=== PATIENT | female | born 1935 | race Caucasian/White ===

== ENCOUNTER 2017-05-23 13:35 | Inpatient (IN) | payer MEDICARE ==
[~2017-05-23] VITALS: Ht 160 cm; Wt 48.1 kg
--- NOTE | 2017-05-23 13:40 | NUR ---
BIB [facility],TRIPPED/FELL INFRONT OF HER HOUSE, C/O LEFT KNEE PAIN WITH GROSS,DEFORMITY
[2017-05-23] MEDS ORDERED: WARF1TAB47 PO (13:54)
[2017-05-23] MEDS ORDERED: DILT180C66 PO (13:54)
[2017-05-23] MEDS ORDERED: METO-302 PO (13:54)
[2017-05-23 13:55] LABS: BASOPHILS # (AUTO) 0.1 /CMM (0.0-0.2); BASOPHILS % (AUTO) 0.4 % (0.0-2.0); EOSINOPHILS # (AUTO) 0.2 /CMM (0.0-0.7); EOSINOPHILS % (AUTO) 1.2 % (0.0-6.0); HEMATOCRIT 42 % (33-45); HEMOGLOBIN 14.1 g/dL (11.5-14.8); LYMPHOCYTES % (AUTO) 13.9 % (20.0-44.0); MEAN CORPUSCULAR HEMOGLOBIN 29 PG (26.0-33.0); MEAN CORPUSCULAR HGB CONC 34 g/dl (31.0-36.0); MEAN CORPUSCULAR VOLUME 86 fL (82-100); MONOCYTES # (AUTO) 0.8 /CMM (0.1-1.30); MONOCYTES % (AUTO) 5.4 % (2.0-12.0); NEUTROPHILS # (AUTO) 11.4 /CMM (1.8-8.9); NEUTROPHILS % (AUTO) 79.1 % (43.0-81.0); PLATELET COUNT (AUTO) 182 /CMM (150-450); RDW COEFFICIENT OF VARIATION 13.9 (11.5-15.0); RED BLOOD CELL COUNT(AUTO) 4.85 MIL/uL (4.0-5.2); WHITE BLOOD COUNT (AUTO) 14.5 K/uL (4.3-11.0)
[2017-05-23 14:08] LABS: CALCIUM, SERUM 9.3 mg/dL (8.5-10.1); CARBON DIOXIDE 28 mmol/L (21-32); CHLORIDE 100 mmol/L (98-107); CREATININE 0.8 mg/dL (0.6-1.3); GLUCOSE 106 mg/dL (74-106); POTASSIUM 4.8 mmol/L (3.5-5.1); SODIUM SERUM 137 mmol/L (136-145); UREA NITROGEN, BLOOD 20 mg/dL (7-18)
[2017-05-23 14:13] LABS: INR 2.05 (0.87-1.13); PROTHROMBIN TIME 22.1 SECS (9.5-12.7)
--- NOTE | 2017-05-23 14:13 | NUR ---
LICENSING AND REGISTRATION DIRECTOR AT BEDSIDE
--- NOTE | 2017-05-23 14:34 | NUR ---
DR RODRIGUEZ AT BEDSIDE
[2017-05-23] MEDS ORDERED: DOFE250C4 PO (16:45)
[2017-05-23] MEDS ORDERED: SERT50TA PO (16:45)
[2017-05-23] MEDS ORDERED: CHOL100062 PO (16:45)
[2017-05-23] MEDS ORDERED: METO25TA6 PO (16:45)
[2017-05-23] MEDS ORDERED: DIGO125T PO (16:45)
[2017-05-23] MEDS ORDERED: IBAN150T PO (16:45)
[2017-05-23] MEDS ORDERED: CALC500T3 PO ×2 (16:48→16:54)
[2017-05-23] MEDS ORDERED: [UNRECOGNIZED DRUG - CODE] PO (16:50)
--- NOTE | 2017-05-23 17:11 | NUR ---
GAVE REPORT TO KACI FRANKS MEDSURAnahy REYES LEFT HIP FRACTURE
--- NOTE | 2017-05-23 17:50 | NUR ---
RN NOTES RECEIVED PT IN BED, ALERT AND ORIENTED X4 COMPLAINING OF DIZZINESS WITH FRIEND AT BEDSIDE. IV ON LAC INTACT AND PATENT, SL. LEFT LEG ELEVATED ON PILLOW. PT ON RA, RESPIRATIONS ARE EVEN AND UNLABORED. WILL CONTINUE TO MONITOR.
[2017-05-23 18:00] VITALS: BP 140/87
--- NOTE | 2017-05-23 19:01 | NUR ---
RN NOTES PT IS SITTING UP IN BED, EATING DINNER. DIZZINESS HAS SUBSIDED. PT ON RA, RESPIRATIONS ARE EVEN AND UNLABORED. IV ON LAC, INTACT AND PATENT. ICE PACK ON NECK, PT IS SWEATING. PT STATES SHE IS SWEATING FROM A BAD REACTION FROM THE NARCOTIC GIVEN IN THE ER. SAFETY MEASURES ARE IN PLACE, CALL LIGHT IS IN REACH. WILL ENDORSE TO DAIRY CATTLE FARMER RN FOR CONTINUITY OF CARE.
--- NOTE | 2017-05-23 19:25 | NUR ---
MS/RN OPENING NOTES PT AWAKE, HOB ELEVATED. FAMILY FRIENDS AT BEDSIDE. A/OX4, ON ROOM AIR, BREATHING EVEN AND UNLABORED. DENIES SOB OR PAIN AT THIS TIME. ALSO DENIES NAUSEA/VOMITING AT THIS TIME. IV TO LAC PATENT AND INTACT. FAMILY FRIENDS TO BRING HOME MEDICATIONS TONIGHT. BED IN LOW/LOCKED POSITION WITH CALL LIGHT IN REACH AND SIDE RAILS UPX2. WILL CONTINUE TO MONITOR
[2017-05-23 20:00] VITALS: BP 109/57
--- NOTE | 2017-05-23 21:25 | NUR ---
MS/RN NOTES PT'S FAMILY FRIENDS BROUGHT HOME MEDICATIONS. VERIFIED WITH TIM. LUCERO TO GIVE NIGHT DOSE PER GURDEEP MARION. Addendum: 05/24/17 at 0026 by ALEE BANSAL RN MEDICATION= DOFETILIDE
[2017-05-24] VITALS (39 sets, daily range): BP systolic 70–140; BP diastolic 18–74
[2017-05-24 06:29] LABS: BASOPHILS % (AUTO) 0.3 % (0.0-2.0); HEMATOCRIT 35 % (33-45); HEMOGLOBIN 11.8 g/dL (11.5-14.8); LYMPHOCYTES # (AUTO) 2.1 /CMM (0.8-4.8); LYMPHOCYTES % (AUTO) 16.3 % (20.0-44.0); MEAN CORPUSCULAR HEMOGLOBIN 29 PG (26.0-33.0); MEAN CORPUSCULAR HGB CONC 33 g/dl (31.0-36.0); MEAN CORPUSCULAR VOLUME 88 fL (82-100); MONOCYTES # (AUTO) 1.4 /CMM (0.1-1.30); MONOCYTES % (AUTO) 10.6 % (2.0-12.0); NEUTROPHILS # (AUTO) 9.4 /CMM (1.8-8.9); NEUTROPHILS % (AUTO) 72.8 % (43.0-81.0); PLATELET COUNT (AUTO) 161 /CMM (150-450); RDW COEFFICIENT OF VARIATION 15.4 (11.5-15.0); RED BLOOD CELL COUNT(AUTO) 4.02 MIL/uL (4.0-5.2); WHITE BLOOD COUNT (AUTO) 12.9 K/uL (4.3-11.0)
[2017-05-24 06:37] LABS: INR 2.08 (0.87-1.13); PROTHROMBIN TIME 21.8 SECS (9.5-12.7)
[2017-05-24 06:47] LABS: CALCIUM, SERUM 8.9 mg/dL (8.5-10.1); CARBON DIOXIDE 26 mmol/L (21-32); CHLORIDE 104 mmol/L (98-107); CREATININE 1.7 mg/dL (0.6-1.3); GLUCOSE 146 mg/dL (74-106); PHOSPHORUS 6.8 mg/dL (2.5-4.9); POTASSIUM 5.8 mmol/L (3.5-5.1); SODIUM SERUM 142 mmol/L (136-145); UREA NITROGEN, BLOOD 31 mg/dL (7-18)
--- NOTE | 2017-05-24 07:30 | NUR ---
MS/RN Patient received Patient received from machinist 2nd shift. No needs at this time, call light within reach, will continue to monitor. Remains NPO, for possible surgery later today.
--- NOTE | 2017-05-24 07:40 | NUR ---
MS/RN CLOSING NOTES PT AWAKE, A/OX4. ON RA, BREATHING EVEN AND UNLABORED. DENIES SOB BUT NOTES PAIN TO LEFT HIP 04/05 BUT REFUSING DILAUDID IT MADE PT FEEL NAUSEOUS AND DIZZY. MORPHINE AVAILABLE AN ALTERNATIVE. IV TO LAC PATENT AND INTACT. DENIES N/V AT THIS TIME. HOME MEDS PROVIDED AND SENT DOWN TO PHARMACY. SON SURINDER RIVERA [phone] CALLED FOR UPDATES. WOULD LIKE TO KNOW IF/WHEN SHE WILL BE HAVING SURGERY AND HOW LONG HER STAY WILL BE. BED IN LOW/LOCKED POSITION, CALL LIGHT IN REACH. SIDE RAILS UPX2. ENDORSED TO AM SHIFT SUSANNA.
--- NOTE | 2017-05-24 08:10 | NUR ---
MS/RN Hypotension Patient noted to be hypotensive at 78/48, reading reckecked with manual cuff and found to be acerate. Dr Solitario made aware, order given for 500ml normal saline bolus and then continuos fluids at 100 ml/hr. Will reckeck blood pressure.
--- NOTE | 2017-05-24 08:30 | NUR ---
MS/RN NS Bolus Normal saline bolus infusing, no signs of infiltration around heplock insertion site. Blood pressure rechecked and remains low at 84/46.
--- NOTE | 2017-05-24 09:00 | NUR ---
MS/RN S/B Dr Gay Seen by Dr Gay - orders given to administer mephyton 10mg, 650mg tylenol with small sips of water. Ice pack to be applied to left hip, may also have ice chips but otherwise to remain NPO as possible surgery later today.
--- NOTE | 2017-05-24 09:10 | NUR ---
MS/RN S/B Dr Gonzalez Seen by Dr Gonzalez - EKG and 2Decho ordered. Made aware that patient remains tachy and hypotensive.
--- NOTE | 2017-05-24 09:15 | NUR ---
MS/RN S/B Dr Solitario Seen by Dr Solitario - no new orders.
--- NOTE | 2017-05-24 09:30 | NUR ---
MS/RN Labs Morning labs reviewed: -WBC 12.9 -K+ 5.8 -BUN 31 -Creat 1.7 -PT 21.8 -INR 2.08 -Digoxin 0.00 MD made aware.
--- NOTE | 2017-05-24 09:30 | NUR ---
MS/RN Consent Surgical consent obtain by Dr Gay for hip surgery, placed in chart.
--- NOTE | 2017-05-24 10:00 | NUR ---
MS/mounter order Order given by both Dr Gay and Dr Gonzalez to transfer patient to ICU for blood pressure support and uncontrolled a-fib. Nursing supervisor laundry called for bed assignment.
--- NOTE | 2017-05-24 10:20 | NUR ---
MS/RN Blood pressure Latest blood pressure 82/51, heartrate 173. Dr Lisa hsieh, awaiting room assignment in ICU. Call received from ICU, patient will be going to room 252.
--- NOTE | 2017-05-24 10:33 | NUR ---
MS/care connector to ICU Patient transferred to ICU as per order, chart and all personal belongings with patient. Report given to Colleen. Next of kin (son) made aware of transfer.
--- NOTE | 2017-05-24 10:35 | NUR ---
ICU/RN: Pt received via ACLS protocol via hospital bed accompanied by Dr Palacios. Pt A&Ox4, denies palpitations, chest discomfort, breathing even and unlabored on RA. Placed on select banker; with periods of SVT lasting 10 secs. discussed need for cardioversion with pt, agreeable with POC. Dr Morrison consulted for anesthesiology. Awaiting arrival.
--- NOTE | 2017-05-24 10:45 | NUR ---
ICU/RN: Dr Palacios and Dr Morrison and at bedside for cardioversion. Pt converted back to NSR in 70's with slight improvement in SBP in low 100's. New orders noted and carried out. laborer laboratory updated.
[2017-05-24 11:26] LABS: CALCIUM, SERUM 7.8 mg/dL (8.5-10.1); CARBON DIOXIDE 28 mmol/L (21-32); CHLORIDE 107 mmol/L (98-107); CREATININE 1.7 mg/dL (0.6-1.3); GLUCOSE 133 mg/dL (74-106); POTASSIUM 5.5 mmol/L (3.5-5.1); SODIUM SERUM 140 mmol/L (136-145); UREA NITROGEN, BLOOD 36 mg/dL (7-18)
[2017-05-24 11:30] LABS: MAGNESIUM 1.9 mg/dL (1.8-2.4); PHOSPHORUS 4.8 mg/dL (2.5-4.9)
--- NOTE | 2017-05-24 12:00 | NUR ---
ICU/RN: Dr Solitario updated on pt transfer to ICU, cardiac and nephrology status. No new orders.
--- NOTE | 2017-05-24 12:15 | NUR ---
ICU/RN: GOLDEN Long at bedside for PICC insertion. Remains hemodynamically stable. Will administer Amiodarone bolus as ordered as BP permits per Dr Palacios post-PICC insertion.
--- NOTE | 2017-05-24 13:57 | NUR ---
ICU/RN: Dr Morrison at bedside for nephrology consult. Updated on current condition, discussed abn labs, elevated K. Orders noted and carried out.
--- NOTE | 2017-05-24 15:54 | NUR ---
ICU/RN: Called [facility], Rx regarding 1400 Kayexelate dose. Per Rx, "the tech is bringing it up right now." Awaiting delivery.
[2017-05-24 16:38] LABS: INR 2.28 (0.87-1.13); PROTHROMBIN TIME 23.9 SECS (9.5-12.7)
--- NOTE | 2017-05-24 16:44 | NUR ---
ICU/RN: Called Rx to f/u Kayexelate delivery, Judah from Rx to personally deliver Kayexelate dose. Will administer as ordered upon arrival.
--- NOTE | 2017-05-24 18:05 | NUR ---
ICU/RN: Pt reports feeling nauseous after Kayexelate dose; administered Zofran for relief. Will reassess accordingly.
--- NOTE | 2017-05-24 18:53 | NUR ---
Patient is alert and pleasant. She lives alone in [place]. Prior to admission, she was driving, ambulatory and very independent. Has no DME or homehealth reported. Has 2 sons Parag & Ruddy who are involved, both contact number not avail. Plan for possible hip surgery. Patient is a good candidate for ARU. Will discuss with patient dc planning options. Addendum: 05/24/17 at 1854 by OLIVIA BLANTON RN Amended: Links added.
--- NOTE | 2017-05-24 19:14 | NUR ---
ICU/RN: Pt tolerated dinner, at 50%. No distress noted. NSR on monitor, SBP WNL. FC draining well to gravity. No pain/facial grimacing noted. Care endorsed to PM RN for SUSANNA.
--- NOTE | 2017-05-24 20:15 | NUR ---
received pt from day shift, a/o x4, SR, on amio drip at 0.5mg, on 2L 02 sat well, lungs clear, no edema, tolerates feeding, f/c OK output, L hip fracture ice pack applied, pt does not want pain meds, v/s stable, no pain, pt turned and repositioned.
[2017-05-25] VITALS (36 sets, daily range): BP systolic 95–154; BP diastolic 53–86
--- NOTE | 2017-05-25 00:11 | NUR ---
pt is resting in the bed, on amio drip at 0.5mg, v/s stable, no pain, pt turned and repositioned q2hrs.
--- NOTE | 2017-05-25 04:28 | NUR ---
pt is resting in the bed, no acute distress overnight, alert, follows commands, receiving amio at 0.5mg, SR, [place] 1tab given for L hip pain, v/s stable, pt cleaned, changed and repositioned q2hrs.
[2017-05-25 04:45] LABS: BASOPHILS # (AUTO) 0.1 /CMM (0.0-0.2); BASOPHILS % (AUTO) 0.5 % (0.0-2.0); EOSINOPHILS # (AUTO) 0.1 /CMM (0.0-0.7); EOSINOPHILS % (AUTO) 0.8 % (0.0-6.0); HEMATOCRIT 27 % (33-45); HEMOGLOBIN 8.9 g/dL (11.5-14.8); LYMPHOCYTES # (AUTO) 1.4 /CMM (0.8-4.8); LYMPHOCYTES % (AUTO) 12.5 % (20.0-44.0); MEAN CORPUSCULAR HEMOGLOBIN 29 PG (26.0-33.0); MEAN CORPUSCULAR HGB CONC 33 g/dl (31.0-36.0); MEAN CORPUSCULAR VOLUME 88 fL (82-100); MONOCYTES # (AUTO) 1.2 /CMM (0.1-1.30); MONOCYTES % (AUTO) 10.7 % (2.0-12.0); NEUTROPHILS # (AUTO) 8.3 /CMM (1.8-8.9); NEUTROPHILS % (AUTO) 75.5 % (43.0-81.0); PLATELET COUNT (AUTO) 111 /CMM (150-450); RDW COEFFICIENT OF VARIATION 14.8 (11.5-15.0); RED BLOOD CELL COUNT(AUTO) 3.06 MIL/uL (4.0-5.2)
[2017-05-25 05:03] LABS: CALCIUM, SERUM 7.3 mg/dL (8.5-10.1); CARBON DIOXIDE 25 mmol/L (21-32); CHLORIDE 106 mmol/L (98-107); CREATININE 0.8 mg/dL (0.6-1.3); GLUCOSE 123 mg/dL (74-106); MAGNESIUM 1.7 mg/dL (1.8-2.4); PHOSPHORUS 2.5 mg/dL (2.5-4.9); POTASSIUM 3.6 mmol/L (3.5-5.1); SODIUM SERUM 139 mmol/L (136-145); UREA NITROGEN, BLOOD 17 mg/dL (7-18)
[2017-05-25 08:45] LABS: INR 1.6 (0.87-1.13); PROTHROMBIN TIME 16.7 SECS (9.5-12.7)
--- NOTE | 2017-05-25 11:00 | NUR ---
ICU/RN: Received phone call from Dr Palacios. Per MD, INR result DW surgeon. Orders 1 unit FFP on standby for surgery. Do not transfuse per MD. Noted and carried out. Consent obtained, pt updated.
--- NOTE | 2017-05-25 11:45 | NUR ---
ICU/RN: Dr Gay at bedside discussing surgery with pt. Pt remains calm, comfortable, agreeable with POC. Visitors at bedside.
--- NOTE | 2017-05-25 12:25 | NUR ---
ICU/RN: Pt sent to OR in stable condition, consents signed.
[2017-05-25 16:36] LABS: CALCIUM, SERUM 7.2 mg/dL (8.5-10.1); CHLORIDE 104 mmol/L (98-107); CREATININE 0.7 mg/dL (0.6-1.3); GLUCOSE 141 mg/dL (74-106); POTASSIUM 3.5 mmol/L (3.5-5.1); SODIUM SERUM 138 mmol/L (136-145); UREA NITROGEN, BLOOD 12 mg/dL (7-18)
[2017-05-25 16:37] LABS: BASOPHILS % (AUTO) 0.2 % (0.0-2.0); EOSINOPHILS # (AUTO) 0.2 /CMM (0.0-0.7); EOSINOPHILS % (AUTO) 1.4 % (0.0-6.0); HEMATOCRIT 21 % (33-45); LYMPHOCYTES # (AUTO) 0.5 /CMM (0.8-4.8); LYMPHOCYTES % (AUTO) 4.1 % (20.0-44.0); MEAN CORPUSCULAR HEMOGLOBIN 29 PG (26.0-33.0); MEAN CORPUSCULAR HGB CONC 33 g/dl (31.0-36.0); MEAN CORPUSCULAR VOLUME 88 fL (82-100); MONOCYTES # (AUTO) 0.7 /CMM (0.1-1.30); MONOCYTES % (AUTO) 4.9 % (2.0-12.0); NEUTROPHILS # (AUTO) 11.9 /CMM (1.8-8.9); NEUTROPHILS % (AUTO) 89.4 % (43.0-81.0); PLATELET COUNT (AUTO) 101 /CMM (150-450); RDW COEFFICIENT OF VARIATION 14.7 (11.5-15.0); RED BLOOD CELL COUNT(AUTO) 2.36 MIL/uL (4.0-5.2); WHITE BLOOD COUNT (AUTO) 13.3 K/uL (4.3-11.0)
[2017-05-25 16:40] LABS: HEMOGLOBIN 6.8 g/dL (11.5-14.8)
[2017-05-25 16:42] LABS: CARBON DIOXIDE 25 mmol/L (21-32)
--- NOTE | 2017-05-25 16:50 | NUR ---
ICU/RN: Pt received from OR, received bedside report from GOLDEN Miranda. Pt VS WNL. Breathing even and unlabored. NSR on monitor. Dressing on L hip C/D/I. Orders from Dr Gay noted and carried out.
[2017-05-25 16:52] LABS: INR 1.19 (0.87-1.13); PROTHROMBIN TIME 12.4 SECS (9.5-12.7)
--- NOTE | 2017-05-25 17:30 | NUR ---
ICU/RN: Pt A&Ox4, c/o severe pain to L Hip and knee 10/10, with facial grimacing and crying, able to follow commands, move toes, and communicate needs. Administered prn Zofran and Morphine for comfort. Will reassess effectiveness accordingly. Call light within reach.
[2017-05-25 17:43] LABS: BAND % (MANUAL) 6 % (0.0-5.0); BASOPHILS % (MANUAL) 0 % (0.0-2.0); EOSINOPHILS % (MANUAL) 0 % (0-4); LYMPHOCYTES % (MANUAL) 6 % (16-48); MONOCYTES % (MANUAL) 4 % (0-11.0); NEUTROPHILS % (MANUAL) 84 (42-76)
--- NOTE | 2017-05-25 18:10 | NUR ---
ICU/RN: Clarified Rx dose with pharmacy; pt received dose in OR. Rx reviewing next due time for IV Ancef. Awaiting clarification of Ancef dosage time from Rx.
--- NOTE | 2017-05-25 18:43 | NUR ---
ICU/RN: Called blood bank to clarify # of PRBC's ordered. Dr Gay ordered 2 units total; unable to cancel previous order for 1 U PRBC for active bleed; Hgb <7. Blood is not yet ready per CLS tech.
--- NOTE | 2017-05-25 19:06 | NUR ---
ICU/RN: Rx called to regarding Ancef dose; pharmacy to change time dose is due. Will endorse administration to PM RN for SUSANNA.
--- NOTE | 2017-05-25 19:31 | NUR ---
ICU/GREEN[facility]ELT BLOOD STARTED, THIS IS THE FIRST OF 2 UNITS TO BE GIVEN. PT IS S/P LEFT CLOSED ORIF, WITH A HEMIGLOBIN OF 6.8. PT APPEARS TO BE COMFORTABLE, NO FEVER NOTED AT THIS TIME AND NO SOB SEEN. CALL LIGHT IS WITHIN REACH.
--- NOTE | 2017-05-25 19:45 | NUR ---
ICU/BENDING MACHINE OPERATOR REPORT FROM FROM DAY NURSE. PT IS ALERT X 3. SATURATION ON 3 LITERS IS 98%, TOLERATING THIS WELL. PT HAS MIN CATH DRAINING URINE. PT IS S/P LEFT ORIF, TODAY WITH DRESSING TO THIS AREA. HEMIGLOBIN WAS 6.8, PT TO GET 2 UNITS OF PRBC'S. PT JUST MORPHINE ABOUT AN HOUR AGO. CALL LIGHT WITHIN REACH.
--- NOTE | 2017-05-25 22:10 | NUR ---
ICU/SAWDUST DRIER SECOND UNIT OF PRBC'S WAS GIVEN, FIRST WAS INFUSED. PT TOLERATED THIS WELL WITH NO SOB SEEN. CALL LIGHT WITHIN REACH.
[2017-05-26] VITALS (33 sets, daily range): BP systolic 85–152; BP diastolic 31–76
--- NOTE | 2017-05-26 00:49 | NUR ---
ICU/PAINTER PT COMPLAINED ABOUT LEFT HIP PAIN FROM SURGERY SITE, NOTIFIED CHARGE NURSE. PT WAS GIVEN MORPHINE 2MG IVP. PT WAS TURNED AND REPOSITIONED. CALL LIGHT WITHIN REACH. ASLO 2NG UNIT PRBC'S IS COMPLETE.
--- NOTE | 2017-05-26 03:30 | NUR ---
ICU/DUST BRUSH ASSEMBLER PT WAS GIVEN AM CARE PER REQUEST FROM PT, PT TOLERATED THIS WELL. PT WAS REPOSITIONED FOR COMFORT AND CARE. CALL LIGHT WITHIN REACH.
[2017-05-26 04:47] LABS: BASOPHILS % (AUTO) 0.2 % (0.0-2.0); HEMATOCRIT 27 % (33-45); HEMOGLOBIN 9.1 g/dL (11.5-14.8); LYMPHOCYTES # (AUTO) 1.1 /CMM (0.8-4.8); MEAN CORPUSCULAR HEMOGLOBIN 30 PG (26.0-33.0); MEAN CORPUSCULAR HGB CONC 34 g/dl (31.0-36.0); MEAN CORPUSCULAR VOLUME 88 fL (82-100); MONOCYTES # (AUTO) 1.5 /CMM (0.1-1.30); MONOCYTES % (AUTO) 11.6 % (2.0-12.0); NEUTROPHILS # (AUTO) 10.5 /CMM (1.8-8.9); NEUTROPHILS % (AUTO) 80.2 % (43.0-81.0); PLATELET COUNT (AUTO) 89 /CMM (150-450); RDW COEFFICIENT OF VARIATION 14.1 (11.5-15.0); RED BLOOD CELL COUNT(AUTO) 3.07 MIL/uL (4.0-5.2); WHITE BLOOD COUNT (AUTO) 13.1 K/uL (4.3-11.0)
[2017-05-26 05:03] LABS: CALCIUM, SERUM 7.2 mg/dL (8.5-10.1); CARBON DIOXIDE 27 mmol/L (21-32); CHLORIDE 105 mmol/L (98-107); CREATININE 0.6 mg/dL (0.6-1.3); GLUCOSE 125 mg/dL (74-106); POTASSIUM 3.6 mmol/L (3.5-5.1); SODIUM SERUM 138 mmol/L (136-145); UREA NITROGEN, BLOOD 15 mg/dL (7-18)
[2017-05-26 05:35] LABS: LYMPHOCYTES % (MANUAL) 6 % (16-48); MONOCYTES % (MANUAL) 9 % (0-11.0)
[2017-05-26 05:36] LABS: BAND % (MANUAL) 2 % (0.0-5.0); NEUTROPHILS % (MANUAL) 83 (42-76)
--- NOTE | 2017-05-26 06:56 | NUR ---
ICU/LINUX NETWORK ADMINISTRATOR PT COMPLAINED ABOUT LEFT HIP PAIN FROM SURGERY SITE. NOTIFIED CHARGE NURSE. MORPHINE 2 MG IVP GIVEN FOR THIS. PT WAS TURNED AND REPOSITION FRO COMFORT AND CARE.
--- NOTE | 2017-05-26 07:41 | NUR ---
INITIAL TELECOMMUNICATIONS NETWORK ENGINEER NOTE RCVD PT AWAKE AND ALERT, SHOWING NO S/O DISTRESS, C/O PAIN OVER LEFT HIP AREA 04/05. SR ON TELE. O2 DISCONTINUED WILL MONITOR PT FOR SATURATION. MIN DRAINING [place] COLORED URINE. LEFT HIP SURGICAL DRESSING C/D/I/. YAHIR PICC C/D/I/PATENT. IVF INFUSING TKO. NO S/O INFILTRATION/PHLEBITIS OBSERVED UPON FLUSHING. WILL CONTINUE TO MONITOR PT FOR SAFETY AND COMFORT. CALL LIGHT WITHIN REACH. BED IN LOW AND LOCKED POSITION. Addendum: 05/26/17 at 1124 by KAREEM ALVAREZ RN INCENTIVE SPIROMETER REQUESTED FROM [facility] DEPARTMENT.
--- NOTE | 2017-05-26 09:12 | NUR ---
METALWORKING INSTRUCTOR NOTE DR. COLON AND AMY AT BEDSIDE WITH PT. PAIN MANAGEMENT REGIMEN CHANGED BY DR. COLON AND RECOMMENDED TO START COUMADIN TODAY. ANCEF X3 DOSES ONLY COMMUNICATED TO PHARMACY TO CHANGE FREQUENCY. ICE TO LEFT HIP AND PT CONTACTED TO COME AND EVAL PT TODAY. CARE DISCUSSED AT BEDSIDE. PT INVOLVED IN DISCUSSION. PER DR. REYES PT CAN BE DOWNGRADED TO TELE TODAY WHEN BED AVAILABLE. PT INFORMED.
--- NOTE | 2017-05-26 09:15 | NUR ---
DR. REYES GAVE THE OKAY TO DOWNGRADE TO TELE STATUS. DYNAMITER NOTIFIED ABOUT ORDER.
--- NOTE | 2017-05-26 10:04 | NUR ---
VEHICLE BODY MAKER NOTE PT EDUCATED ON IMPORTANCE OF INCENTIVE SPIROMETER AND USE. PT WAS OBSERVED PERFORMING BREATHING EXERCISES CORRECTLY. WILL CONTINUE TO MONITOR.
--- NOTE | 2017-05-26 12:54 | NUR ---
STEM CLEANING MACHINE FEEDER NOTE DR. REYES CONTACTED REGARDING PT'S LOW UOP 30 ML EACH 2HRS FOR THE PAST 4 HRS. PT INCREASED PO FLUID INTAKE WITH NO IMPROVEMENT ON UOP. MD ACKNOWLEDGED AND DID NOT RECOMMEND IVF AT THIS TIME. WILL CONTINUE TO MONITOR.
--- NOTE | 2017-05-26 16:21 | NUR ---
MEDICATION TECHNICIAN NOTE LM FOR PHYSICAL THERAPY DEPARTMENT REQUESTING PT TO BE EVALUATED FOR POST-OP. JUDIE JOYCE SPOKE WITH PHYSICAL THERAPIST THIS AM AND WAS TOLD THAT PT WAS NOT SCHEDULED TO BE EVALUATED TODAY.
--- NOTE | 2017-05-26 18:38 | NUR ---
TRANSFER PHOTOVOLTAIC SOLAR CELL DESIGNER NOTE PT TRANSFERRED TO [facility] ROOM 117-2 VIA MONITORED BED BY RN. PT SHOWING NO S/O DISTRESS. VITAL SIGNS STABLE. MIN DRAINING CLEAR, YELLOW URINE. YAHIR PICC C/D/I/PATENT. NO S/O INFILTRATION/PHLEBITIS OBSERVED UPON FLUSHING. PT'S CARE ENDORSED TO GOLDEN WARD ALL PT'S BELONGINGS TRANSPORTED INCLUDING CELL PHONE, MONTESSORI TEACHER, CLOTHES AND SHOES.
--- NOTE | 2017-05-26 20:45 | NUR ---
DIETITIAN TEACHING INITIAL NOTES RECEIVED PT AWAKE IN BED, AOX4, ON RA WELL TOLERATED, C/O PAIN @L-HIP, S/P FALL AT HOME, BUT STATES OK FOR NOW CAN TOLERATE 3/10, ALL NEEDS MET, CALL LIGHT WITH IN REACH, WILL PROVIDE GENTLE HANDLING WHILE ASSISTING WITH ADL'S.
--- NOTE | 2017-05-26 20:48 | NUR ---
LOPRESSOR 25 MG HOLD BP 100/43, HR 79
[2017-05-27] VITALS (7 sets, daily range): BP systolic 90–126; BP diastolic 40–63
--- NOTE | 2017-05-27 00:44 | NUR ---
PATIENT C/O FEELING CONSTIPATED, OFFERED MOM, PATIENT REFUSED AND REQUESTED FOR SUPPOSITORY. MD AWARE WITH NEW ORDERS NOTED.
--- NOTE | 2017-05-27 01:00 | NUR ---
c/o of pain and constipation will medicate as needed.
--- NOTE | 2017-05-27 06:53 | NUR ---
Slept only after pain med given, prune juice given for constipation
--- NOTE | 2017-05-27 07:25 | NUR ---
RN OPEN NOTES RECEIVED REPORT FROM HISTORIC SITES REGISTRAR. WILL CONTINUE TO MONITOR AND ASSESS PATIENT THROUGHOUT MY SHIFT
[2017-05-27 08:02] LABS: BASOPHILS % (AUTO) 0.3 % (0.0-2.0); EOSINOPHILS # (AUTO) 0.3 /CMM (0.0-0.7); EOSINOPHILS % (AUTO) 2.8 % (0.0-6.0); HEMATOCRIT 25 % (33-45); HEMOGLOBIN 8.2 g/dL (11.5-14.8); INR 1.05 (0.87-1.13); LYMPHOCYTES # (AUTO) 1.7 /CMM (0.8-4.8); LYMPHOCYTES % (AUTO) 13.5 % (20.0-44.0); MEAN CORPUSCULAR HEMOGLOBIN 30 PG (26.0-33.0); MEAN CORPUSCULAR HGB CONC 33 g/dl (31.0-36.0); MEAN CORPUSCULAR VOLUME 89 fL (82-100); MONOCYTES # (AUTO) 1.2 /CMM (0.1-1.30); MONOCYTES % (AUTO) 9.8 % (2.0-12.0); NEUTROPHILS # (AUTO) 9.1 /CMM (1.8-8.9); NEUTROPHILS % (AUTO) 73.6 % (43.0-81.0); PLATELET COUNT (AUTO) 103 /CMM (150-450); PROTHROMBIN TIME 10.9 SECS (9.5-12.7); RDW COEFFICIENT OF VARIATION 14.5 (11.5-15.0); RED BLOOD CELL COUNT(AUTO) 2.77 MIL/uL (4.0-5.2); WHITE BLOOD COUNT (AUTO) 12.4 K/uL (4.3-11.0)
[2017-05-27 08:15] LABS: ALANINE AMINOTRANSFERASE 17 U/L (12-78); ALBUMIN 2.3 g/dL (3.4-5.0); ALKALINE PHOSPHATASE 62 U/L (46-116); ASPARTATE AMINOTRANSFERASE 23 U/L (15-37); BILIRUBIN,TOTAL 1.2 mg/dL (0.2-1.0); CALCIUM, SERUM 7.7 mg/dL (8.5-10.1); CARBON DIOXIDE 30 mmol/L (21-32); CHLORIDE 104 mmol/L (98-107); CREATININE 0.7 mg/dL (0.6-1.3); GLUCOSE 107 mg/dL (74-106); PHOSPHORUS 1.3 mg/dL (2.5-4.9); POTASSIUM 3.6 mmol/L (3.5-5.1); SODIUM SERUM 136 mmol/L (136-145); TOTAL PROTEIN, SERUM 4.9 g/dL (6.4-8.2); UREA NITROGEN, BLOOD 12 mg/dL (7-18)
--- NOTE | 2017-05-27 19:30 | NUR ---
SHIFT COMMANDER INITIAL NOTES RECEIVED PATIENT AWAKE A/OX3, ABLE TO MAKE NEEDS KNOWN. DENIES SOB. DENIES PAIN OR DISCOMFORT AT THIS TIME. SKIN WARM AND DRY TO TOUCH. ON TELE MONITOR SR. WITH YAHIR PICC LINE PATENT AND INTACT. WITH F/C PATENT AND INTACT DRAINING BY GRAVITY, CLEAR, YELLOW OUTPUT. NOTED WITH IGNACIO BANDAGE ON LEFT LEG AND DRESSING ON LEFT HIP, INTACT. HOB ELEVATED. SIDE RAILS UP AND LOCKED. BED KEPT AT LOWEST POSITION. CALL LIGHT KEPT WITHIN EASY REACH. WILL CONTINUE TO MONITOR.
--- NOTE | 2017-05-27 20:06 | NUR ---
CLOSING RN NOTES PT. IS IN BED A&OX4. NO SOB, UNLABORED AND EVEN BREATHING. NO S/S OF ACUTE DISTRESS. IV PICC LINE ACCESS IS INTACT AND PATENT. BED IS IN LOWEST POSITION, LOCKED, 2 SIDE RAILS UP, AND CALL LIGHT WITHIN REACH. PT. KEPT DRY AND CLEAN, ALL NURSING CARE ANTICIPATED, AND WILL ENDORSE TO DIRECTOR OF ELEMENTARY EDUCATION NURSE.
--- NOTE | 2017-05-27 20:50 | NUR ---
UNABLE TO ADMINISTER HOME MEDICATION DUE TO UNAVAILABILITY. PHARMACY CLOSED AT THIS TIME.
[2017-05-28] VITALS: BP 115/50
[2017-05-28 04:00] VITALS: BP 125/53
[2017-05-28 07:06] LABS: BASOPHILS % (AUTO) 0.4 % (0.0-2.0); EOSINOPHILS # (AUTO) 0.4 /CMM (0.0-0.7); EOSINOPHILS % (AUTO) 3.2 % (0.0-6.0); HEMATOCRIT 26 % (33-45); HEMOGLOBIN 8.7 g/dL (11.5-14.8); LYMPHOCYTES # (AUTO) 1.9 /CMM (0.8-4.8); MEAN CORPUSCULAR HEMOGLOBIN 30 PG (26.0-33.0); MEAN CORPUSCULAR HGB CONC 34 g/dl (31.0-36.0); MEAN CORPUSCULAR VOLUME 89 fL (82-100); MONOCYTES # (AUTO) 1.3 /CMM (0.1-1.30); MONOCYTES % (AUTO) 10.1 % (2.0-12.0); NEUTROPHILS # (AUTO) 8.9 /CMM (1.8-8.9); NEUTROPHILS % (AUTO) 71.3 % (43.0-81.0); PLATELET COUNT (AUTO) 142 /CMM (150-450); RDW COEFFICIENT OF VARIATION 14.4 (11.5-15.0); RED BLOOD CELL COUNT(AUTO) 2.87 MIL/uL (4.0-5.2); WHITE BLOOD COUNT (AUTO) 12.4 K/uL (4.3-11.0)
[2017-05-28 07:18] LABS: INR 1.53 (0.87-1.13)
--- NOTE | 2017-05-28 07:20 | NUR ---
OFFICE LEAD CLOSING NOTES NO SIGNIFICANT CHANGES OVERNIGHT. ALL NEEDS ANTICIPATED AND MET. PAIN MONITORED AND MANAGED NEEDED. PATIENT KEPT CLEAN AND DRY. NO N/V. TURNED AND REPOSITIONED TOLERATED. F/C PATENT AND INTACT, DRAINING BY GRAVITY. YAHIR PICC PATENT AND INTACT. NO SOB. HOB ELEVATED. SIDE RAILS UP AND LOCKED. BED KEPT AT LOWEST POSITION. CALL LIGHT KEPT WITHIN EASY REACH. CONTINUITY OF CARE ENDORSED TO AM NURSE.
[2017-05-28 07:24] LABS: CALCIUM, SERUM 7.7 mg/dL (8.5-10.1); CARBON DIOXIDE 29 mmol/L (21-32); CHLORIDE 104 mmol/L (98-107); CREATININE 0.6 mg/dL (0.6-1.3); GLUCOSE 93 mg/dL (74-106); MAGNESIUM 1.8 mg/dL (1.8-2.4); PHOSPHORUS 2.4 mg/dL (2.5-4.9); POTASSIUM 3.9 mmol/L (3.5-5.1); SODIUM SERUM 138 mmol/L (136-145); UREA NITROGEN, BLOOD 11 mg/dL (7-18)
[2017-05-28 08:00] VITALS: BP 130/48
[2017-05-28 12:00] VITALS: BP 124/43
[2017-05-28 16:00] VITALS: BP 119/40
--- NOTE | 2017-05-28 19:30 | NUR ---
RN NOTE PT DISCHARGED TO [facility], IN STABLE CONDITION, VIA AMBULANCE, REPORT GIVEN TO GOLDEN AGUILAR, PHONE [phone], DISCHARGE INSTRUCTIONS GIVEN TO PT, EXIT CARE DONE, MIN CATHETER LEFT IN PLACE, PICTURES PLACED IN CHART, PICCLINE REMOVED, ID BAND REMOVED, MEDICATIONS AND BELONGING LIST SIGNED AND PROVIDED TO PT.
== END 2017-05-28 20:05 | DRG 480 ==
LOC: ER 13:38 → MEDSG2 17:29 → ICU 05-24 10:30 → TELE1 05-26 18:21
PROVIDERS: ADMIT Internal Medicine; ATTEND Internal Medicine
PROC: 5A2204Z Restoration of Cardiac Rhythm, Single (ICD-10-PCS; 2017-05-24)
PROC: 02HV33Z Insertion of Infusion Device into Superior Vena Cava, Percutaneous Approach (ICD-10-PCS; 2017-05-24)
PROC: B548ZZA Ultrasonography of Superior Vena Cava, Guidance (ICD-10-PCS; 2017-05-24)
PROC: 30233N1 Transfusion of Nonautologous Red Blood Cells into Peripheral Vein, Percutaneous Approach (ICD-10-PCS; 2017-05-25)
PROC: 30233K1 Transfusion of Nonautologous Frozen Plasma into Peripheral Vein, Percutaneous Approach (ICD-10-PCS; 2017-05-25)
PROC: 0QS704Z Reposition Left Upper Femur with Internal Fixation Device, Open Approach (ICD-10-PCS; principal; 2017-05-25 12:00)
DX: S72.142A Displaced intertrochanteric fracture of left femur, initial encounter for closed fracture (principal); E43 Unspecified severe protein-calorie malnutrition; N17.0 Acute kidney failure with tubular necrosis; I95.9 Hypotension, unspecified; E88.09 Other disorders of plasma-protein metabolism, not elsewhere classified; D68.59 Other primary thrombophilia; E87.5 Hyperkalemia; I48.0 Paroxysmal atrial fibrillation; Z68.1 Body mass index [BMI] 19.9 or less, adult; I48.2 Chronic atrial fibrillation; E86.0 Dehydration; D64.9 Anemia, unspecified; I10 Essential (primary) hypertension; M81.0 Age-related osteoporosis without current pathological fracture; Z79.01 Long term (current) use of anticoagulants; W01.0XXA Fall on same level from slipping, tripping and stumbling without subsequent striking against object, initial encounter; Y93.89 Activity, other specified; Y92.89 Other specified places as the place of occurrence of the external cause; F32.9 Major depressive disorder, single episode, unspecified; M62.50 Muscle wasting and atrophy, not elsewhere classified, unspecified site; I35.1 Nonrheumatic aortic (valve) insufficiency; Z95.2 Presence of prosthetic heart valve; R33.9 Retention of urine, unspecified
CPT/HCPCS: 36415; 36569; 71010-TC; 73020; 73502; 73552; 73560-TC; 80048-TC; 80053-TC; 80162-TC; 83735-TC; 84100-TC; 85025-TC; 85610-TC; 85730-TC; 86850-TC; 86921-TC; 87081-TC; 93307-TC; 97110-TC; 97116-TC; 97530-TC; A4606; A6209; A6402; A6403; C1713; J0282; J0690; J1100; J1160; J1650; J2001; J2270; J2405; J3430; J3475; J3490; J7030; J7040; J7050; J7060; P9016-BL; P9017-BL; Z7610